=== PATIENT | male | born 1990 | race Caucasian/White ===

== ENCOUNTER 2019-02-28 09:08 | Emergency (ER) | payer OTHER ==
[2019-02-28 10:21] LABS: HBSAg Index 0.23 S/CO (0-0.99); HIV (1/2) Antibody/Antigen Non-Reactive (NonReactive); HIV 1/2 INDEX 0.16 S/CO (<1.00); Hep B Surf Ag Non-Reactive S/CO (NonReactive); Hep C IgG Ab Non-Reactive (NonReactive); Hep C Index 0.09 S/CO (0-0.79)
== END 2019-02-28 09:50 | disposition home or self-care (01) ==
LOC: ERS 09:08
DX: Z57.9 Occupational exposure to unspecified risk factor (principal)
CPT/HCPCS: 36415; 86803; 87340; 87389; 99283